=== PATIENT | male | born 1980 | race Caucasian/White ===

== ENCOUNTER 2023-05-06 12:42 | Emergency (ER) | payer OTHER, SELFPAY ==
[2023-05-06 13:21] VITALS: BP 109/71; PULSE 70; RESP 18; TEMP 36.6; O2SAT 97; BMI 29.5
--- NOTE | 2023-05-06 13:25 | ED.GENADULT ---
HPI - General Adult General Chief complaint: General Medical Stated complaint: Methodone History of Present Illness HPI narrative: patient left before being seen by ED provider Related Data Allergies Allergy/AdvReac Type Severity Reaction Status Date / Time No Known Allergies Allergy Verified 05/06/23 13:27 [No Known Allergies*] PMFSH Social History Social History (System 08/16/22 @ 10:03 by Madhavi Shepard) Advance Directives: No Advance Directives Information Provided: No Physical Exam ED Vital Signs: Vital Signs - 24 hr 05/06/23 13:21 Temperature 98 F Pulse Rate 70 Respiratory Rate 18 Blood Pressure 109/71 Pulse Oximetry 97 Oxygen Delivery Method Room Air BMI result Body Mass Index 29.5 Course Course Course Narrative: RME: 43 yold male presents to the ED missed methadone dose. patient states last dosed was due to methaonde being closed since sunday. Discharge Plan Discharge Clinical Impression: Pain Patient Disposition: Elopement Interventions: ED Discharge Assessment Last Done: 05/06/23 17:23 Discharge Date/Time: 05/06/23 17:23
== END 2023-05-06 17:23 | disposition left against medical advice (07) ==
PROVIDERS: Emergency Provider Emergency Medicine; PCP Internal Medicine
DX: M79.10 Myalgia, unspecified site (principal)
CPT/HCPCS: 99282

== ENCOUNTER 2024-02-01 11:17 | Outpatient (AMB) | payer OTHER, SELFPAY ==
[2024-02-01 11:19] VITALS: BP 120/90; PULSE 81; TEMP 36.5; O2SAT 97; BMI 27.8
--- NOTE | 2024-02-01 11:19 | AM.OFFWIN_ITS ---
Intake Vital Signs 02/01/24 11:19 Height 5 ft 9 in Weight 188 lb BMI 27.8 BP 120/90 H Blood Pressure Location Lt brachial Position Sitting Pulse 81 Pulse Source Pulse Oximeter Temp 97.7 F Temp Source Temporal Artery Scan Pulse Oximetry (%) 97 Intake Visit Reasons: [employer] Headache, fever, nausea, tired Intake Note: pt is here today for headache fever nausea tired started 2 days ago Patient Tobacco Use Status: Never used Tobacco Allergies No Known Allergies [No Known Allergies*] Allergy (Verified 02/01/24 11:22) Do you need a note to return to daycare/school/sports/work: Yes HPI HPI Comments History of Present Illness Details This is a 44-year-old male who presented to the walk-in clinic compla ining of viral URI symptoms. Patient reports nasal congestion/rhinorrhea, headaches, nausea, dry cough, fatigue, low-grade fever/chills, myalgias, and sore throat x2 days. He denies any chest pain or shortness a breath. He denies any abdominal pain. [facility] Social History (System 08/16/22 @ 10:03 by Madhavi Shepard) Patient Tobacco Use Status: Never used Tobacco Review of Systems Const All systems reviewed & are unremarkable except as noted in HPI and below Reports no additional complaints Eyes Reports no additional complaints ENT Reports no additional complaints Card Reports no additional complaints Resp Reports no additional complaints GI Reports no additional complaints Reports no additional complaints Musc Reports no additional complaints Skin/Breast Reports system reviewed and no additional complaints, except as documented Neuro Reports no additional complaints Psych Reports no additional complaints Endo Reports no additional complaints Cory/Lymph Reports no additional complaints Aller/Immun Reports no additional complaints Physical Exam Vital Signs: Last Vital Signs Temp 97.7 F 02/01/24 11:19 Pulse 81 02/01/24 11:19 BP 120/90 H 02/01/24 11:19 Pulse Ox 97 02/01/24 11:19 BMI result Body Mass Index 27.8 Const Other: Vital signs reviewed. Constitutional: Non-toxic appearing. No acute distress. Well-developed and well-nourished. Patient is diaphoretic. HEENT: Normocephalic and atraumatic. Mild posterior pharyngeal erythema. PERRL/EOMI. Skin: Warm and dry. No rashes or lesions noted. Neck: Full and painless range of motion. No cervical lymphadenopathy. Cardio: Regular rate and rhythm. No murmurs, gallops, or rubs. No lower extremity edema. No JVD. Pulmonary: No respiratory distress. No accessory muscle usage. Clear to auscultation bilaterally without wheezing, crackles, or rhonchi. Gastrointestinal: Soft, nontender, and nondistended in all 4 quadrants. Musculoskeletal: Normal range of motion in joints throughout the body. No deformity or other signs of injury. Neuro: Alert and oriented x4. Cranial nerves 2-12 grossly intact. No focal deficits appreciated. Psych: Normal mood and affect. Assessment & Plan Assessment & Plan (1) Viral URI with cough: Code(s): J06.9 - Acute upper respiratory infection, unspecified Plan: Patient presenting with signs and symptoms most consistent with acute respiratory tract infection, possibly influenza a. Recommended symptomatic management including rest, increased fluids, advil/tylenol for pain/fever, and over the counter throat lozenges/decongestants. I sent a prescription for p.o. oseltamivir 75 mg twice daily x5 days to presumptively treat influenza. Patient was also given a prescription for p.o. ondansetron 4 mg every 8 hours as needed for nausea/vomiting and PO loratadine 10 mg daily. Patient was reassured that this is likely a self-limiting viral illness. Patient advised to follow up here or go to the emergency room for worsening/persistent symptoms. Orders: Orders SARS-CoV2/FLU/RSV Today R09.89 - Other specified symptoms and signs involving the circulatory and respiratory systems Medications: New ondansetron 4 mg PO Q8H PRN 14 tabs 0RF nausea and vomiting oseltamivir 75 mg PO BID 5 days 10 caps 0RF loratadine 10 mg PO DAILY 30 tabs 0RF Coding Level of Care Code New Pt Level 3 (44912) Diagnoses Viral URI with cough J06.9
== END 2024-02-01 12:53 | disposition home or self-care (01) ==
PROVIDERS: PCP Internal Medicine; Visit Provider Physician Assistant Medical
DX: J06.9 Acute upper respiratory infection, unspecified (principal)
CPT/HCPCS: 99203

== ENCOUNTER 2024-02-01 13:44 | Outpatient (REF) | payer OTHER, SELFPAY ==
[2024-02-01 15:01] LABS: Influenza A PCR NEGATIVE (Negative); Influenza B PCR NEGATIVE (Negative); Resp Syncy Virus RNA Qual PCR NEGATIVE (Negative); SARS COV2 PCR INHOUSE NEGATIVE (Negative)
== END 2024-02-01 13:45 | disposition home or self-care (01) ==
LOC: HO.LNP 13:44
PROVIDERS: Visit Provider Physician Assistant Medical
DX: Z11.52 Encounter for screening for COVID-19 (principal); R09.89 Other specified symptoms and signs involving the circulatory and respiratory systems
CPT/HCPCS: 0241U

== ENCOUNTER 2024-09-01 08:59 | Outpatient (AMB) | payer OTHER, SELFPAY ==
[2024-09-01 09:01] VITALS: BP 122/82; PULSE 72; O2SAT 98; BMI 27.8
--- NOTE | 2024-09-01 09:01 | MHC.OFFWIV ---
Intake Vital Signs 09/01/24 09:01 Height 5 ft 9 in Weight 188 lb BMI 27.8 BP 122/82 Blood Pressure Location Rt brachial Position Sitting Pulse 72 Pulse Source Pulse Oximeter Pulse Oximetry (%) 98 Intake Visit Reasons: EP Something on LT eye Intake Note: pt is here for left eye concern, was working in garage this morning and something is in his eye Patient Tobacco Use Status: Never used Tobacco Allergies No Known Allergies [No Known Allergies*] Allergy (Verified 09/01/24 09:03) Do you need a note to return to daycare/school/sports/work: Yes HPI HPI Comments History of Present Illness Details Patient is a 44-year-old male complaining of something in his left eye. He tells me that this morning he was working in his garage and he saw something fly into his left eye. He thinks it was a piece of metal. He denies any changes in his vision or pain in his eye. He describes it more of an irritation. He does not know in his last tetanus was. He does not wear contacts and he does not see an budget counselor on a regular basis. [facility] Social History (System 08/16/22 @ 10:03 by Madhavi Shepard) Patient Tobacco Use Status: Never used Tobacco Review of Systems Const All systems reviewed & are unremarkable except as noted in HPI and below Physical Exam Vital Signs: Last Vital Signs Pulse 72 09/01/24 09:01 BP 122/82 09/01/24 09:01 Pulse Ox 98 09/01/24 09:01 BMI result Body Mass Index 27.8 Const General: cooperative, healthy appearing, comfortable, no acute distress and well developed Orientation/consciousness: patient oriented x3 Limitations: no limitations HEENT Head: Yes normal to inspection Eyes Alignment and Position: alignment normal and position normal Periorbital: periorbital findings normal Eyelids: Yes eyelids normal Conjunctivae: conjunctival abnormal left conjunctival injection Corneas: corneas abnormal on the left fluorescein used and abrasion diffuse and fluorescein used Neck Neck: Yes normal visual inspection and Yes supple Neuro General: patient oriented x3 Assessment & Plan Assessment & Plan (1) Corneal abrasion, left: Code(s): S05.02XA - Injury of conjunctiva and corneal abrasion without foreign body, left eye, initial encounter Qualifiers: Encounter type: initial encounter Qualified Code(s): S05.02XA - Injury of conjunctiva and corneal abrasion without foreign body, left eye, initial encounter Plan: Diffuse corneal abrasion on the left eye. Gave patient erythromycin ointment prescription and a list of 4 different ophthalmologists to call if he should develop changes in his vision or worsening eye pain. Also gave patient Tdap as it was metal that went into his eye which caused a very large abrasion. Plan see above Orders: Orders TDaP Immunization Today S05.02XA - Injury of conjunctiva and corneal abrasion without foreign body, left eye, initial encounter Medications: New Boostrix Tdap (diphth,pertus(acell),tetanus) 0.5 mL IM ONCE 0.5 mL 0RF NS S05.02XA - Injury of conjunctiva and corneal abrasion without foreign body, left eye, initial encounter erythromycin Apply to left eye 4 times a day while awake 0.5 inches ophthalmic (eye) QID 3.5 grams 0RF Coding Level of Care Code New Pt Level 4 (77286) Diagnoses Abrasion of left cornea, initial encounter S05.02XA Encounter type: initial encounter
== END 2024-09-01 09:48 | disposition home or self-care (01) ==
PROVIDERS: PCP Internal Medicine; Visit Provider Physician Assistant
DX: S05.02XA Injury of conjunctiva and corneal abrasion without foreign body, left eye, initial encounter (principal)

== ENCOUNTER → 2024-09-01 08:59 | Outpatient (BNVA) | payer OTHER, SELFPAY | PROVIDERS: PCP Internal Medicine; Visit Provider Physician Assistant | DX: Z23 Encounter for immunization (principal); S05.02XA Injury of conjunctiva and corneal abrasion without foreign body, left eye, initial encounter | CPT/HCPCS: 90471; 90715; 99202 ==